=== PATIENT | male | born 1960 | race Hispanic/Latino ===

== ENCOUNTER 2021-12-25 18:13 | Inpatient (IN) | payer OTHER ==
[2021-12-25] MEDS ORDERED: Cefepime 2 GM VIAL ONE (19:12)
[2021-12-25 19:28] LABS: #Eosinphils 0.1 thou/uL (0.0-0.7); #Lymphocytes 0.4 thou/uL (1.20-3.40); #Monocytes 0.8 thou/uL (0.11-0.59); #Neutrophils 14.2 thou/uL (1.40-6.50); %Eosinophils 0.3 % (0.0-10.0); %Lymphocytes 2.3 % (21.0-51.0); %Monocytes 5.3 % (0.0-10.0); %Neutrophils 92.1 % (42.0-75.0); Hemoglobin 11.2 g/dL (14.0-18.0); Mean Corpuscular HGB CONC 31.3 g/dL (32.0-36.0); Mean Corpuscular Hemoglobin 25.6 pg (27.0-31.0); Mean Platelet Volume 8.1 fL (7.4-10.4); Platelet Count 155 thou/uL (130-400); RBC Distribution Width 16.4 % (11.5-14.5); Red Blood Cell (RBC) Count 4.35 mill/uL (4.70-6.10); White Blood Cell (WBC) Count 15.4 thou/uL (4.8-10.8)
[2021-12-25] MEDS ORDERED: Vancomycin 1 GM/200 ML BAG ONE (19:37)
[2021-12-25 19:53] LABS: ALT (SGPT) 14 U/L (8-55); AST (SGOT) 11 U/L (5-34); Albumin 2.5 g/dL (3.4-4.8); Alkaline Phosphatase 78 U/L (40-110); Anion Gap 11 mmol/L (10-20); BUN (Urea Nitrogen) 23 mg/dL (8.4-25.7); CK (CPK) 44 U/L (30-200); Calc. Creatinine Clearance 0 mL/min (70-130); Calcium 7.9 mg/dL (7.8-10.44); Carbon Dioxide 26 mmol/L (23-31); Chloride 99 mmol/L (98-107); Estimated GFR 61; Globulin 2.7 g/dL (2.4-3.5); Glucose 307 mg/dL (80-115); Lipase 17 U/L (8-78); Potassium 3.9 mmol/L (3.5-5.1); Protein, Total 5.2 g/dL (5.8-8.1); Sodium 132 mmol/L (136-145)
[2021-12-25 20:12] LABS: CKMB 1.5 ng/mL (0-6.6)
[2021-12-25] MEDS ORDERED: Nitroglycerin 0.4 MG TAB (25 Tab Bottle) SL PRN (20:34)
[2021-12-25] MEDS ORDERED: HumaLOG 300 UNITS/3 ML VIAL SC PRN (20:34)
[2021-12-25] MEDS ORDERED: Dextrose 5% in Water 1,000 ML IV PRN (20:34)
[2021-12-25] MEDS ORDERED: Dextrose 50% Abboject 50 ML SYRINGE SLOW IVP PRN (20:34)
[2021-12-25] MEDS ORDERED: Bisacodyl 5 MG TAB PO PRN (20:34)
[2021-12-25] MEDS ORDERED: Acetaminophen 325 MG TAB PO PRN (20:34)
[2021-12-25] MEDS ORDERED: Morphine 2 MG/ML VIAL SLOW IVP PRN (20:38)
[2021-12-25] MEDS ORDERED: Fluconazole 100 MG TAB PO SCH ×2 (20:45→20:46)
[2021-12-25] MEDS ORDERED: Furosemide 20 MG/2 ML VIAL SLOW IVP SCH (20:45)
[2021-12-25] MEDS ORDERED: Miconazole 2% Cream 30 GM TUBE TOP SCH (21:00)
[2021-12-25] MEDS ORDERED: HYDROcodone/Acetaminophen 10/325 mg Tablet PO PRN (22:55)
[2021-12-25] MEDS ORDERED: LORazepam 2 MG/ML SYRINGE IVP PRN (22:56)
[2021-12-25] MEDS ORDERED: levETIRAcetam 500 MG TAB PO SCH (23:00)
[2021-12-25] MEDS: cefTRIAXone\\ROCEPHIN 2 GM in Sodium Chloride 0.9% 100 ML IVPB SCH (23:08)
[2021-12-25 23:33] LABS: SARS-CoV-2 NAA Rapid Test Not Detected (NotDetected)
[2021-12-25] MEDS ORDERED: Vancomycin HCl 750 MG in Sodium Chloride 0.9% 250 ML 250 ML IVPB SCH (23:59)
[2021-12-26 00:36] LABS: Troponin I 0.054 ng/mL (< 0.028)
[2021-12-26 00:55] LABS: Bilirubin Negative (Negative); Blood, Urine Trace (Negative); Clarity Clear (Clear); Glucose, Urine (Dipstick) 100 mg/dL (Negative); Ketone, Urine Negative (Negative); Leukocyte 75 Leu/uL (Negative); Nitrite Negative (Negative); Protein, Urine (Dipstick) 20 mg/dL (Neg-Trace); RBC/HPF 0-3 HPF (0-3); Specific Gravity, Urine 1.008 (1.002-1.036); Squamous Epithelial 0-3 HPF (0-3); Urobilinogen Normal mg/dL (Less than 2); WBC/HPF 0-3 HPF (0-3); pH, Urine 6.5 (5.0-9.0)
[2021-12-26 01:02] LABS: Bacteria/HPF None Seen HPF (None Seen)
[2021-12-26 02:07] LABS: #Eosinphils 0.1 thou/uL (0.0-0.7); #Lymphocytes 0.5 thou/uL (1.20-3.40); #Monocytes 0.8 thou/uL (0.11-0.59); #Neutrophils 14.9 thou/uL (1.40-6.50); %Basophils 0.2 % (0.0-1.0); %Eosinophils 0.4 % (0.0-10.0); %Lymphocytes 2.9 % (21.0-51.0); %Monocytes 4.9 % (0.0-10.0); %Neutrophils 91.7 % (42.0-75.0); Hemoglobin 11.3 g/dL (14.0-18.0); Mean Corpuscular HGB CONC 31.1 g/dL (32.0-36.0); Mean Corpuscular Hemoglobin 25.5 pg (27.0-31.0); Mean Platelet Volume 8.1 fL (7.4-10.4); Platelet Count 155 thou/uL (130-400); RBC Distribution Width 16.3 % (11.5-14.5); Red Blood Cell (RBC) Count 4.42 mill/uL (4.70-6.10); White Blood Cell (WBC) Count 16.2 thou/uL (4.8-10.8)
[2021-12-26 02:32] LABS: Troponin I 0.092 ng/mL (< 0.028)
[2021-12-26 02:51] LABS: ALT (SGPT) 12 U/L (8-55); AST (SGOT) 13 U/L (5-34); Albumin 2.5 g/dL (3.4-4.8); Alkaline Phosphatase 74 U/L (40-110); Anion Gap 12 mmol/L (10-20); BUN (Urea Nitrogen) 20 mg/dL (8.4-25.7); Bilirubin, Total 0.7 mg/dL (0.2-1.2); Calc. Creatinine Clearance 87 mL/min (70-130); Calcium 7.7 mg/dL (7.8-10.44); Carbon Dioxide 22 mmol/L (23-31); Cardiac Risk 3.7 (Less than 4.5); Chloride 104 mmol/L (98-107); Cholesterol 137 mg/dl (< 200 Desired); Estimated GFR 78; Globulin 2.9 g/dL (2.4-3.5); Glucose 209 mg/dL (80-115); HDL Cholesterol 37 mg/dL (>60 Neg Risk); LDL Cholesterol, Calculated 79 mg/dL; Potassium 3.4 mmol/L (3.5-5.1); Protein, Total 5.4 g/dL (5.8-8.1); Sodium 135 mmol/L (136-145); Triglycerides 107 mg/dL (Less than 150)
[2021-12-26] MEDS: levETIRAcetam 500 MG TAB PO SCH ×2 (08:59→20:50)
[2021-12-26] MEDS: Atorvastatin Calcium 40 MG TAB PO SCH (09:00)
[2021-12-26] MEDS: Aspirin Chewable 81 MG TAB PO SCH (09:00)
[2021-12-26] MEDS: Apixaban 2.5 MG TAB PO SCH ×2 (09:01→20:50)
[2021-12-26] MEDS: Furosemide 40 MG TAB PO SCH ×2 (09:01→15:29)
[2021-12-26] MEDS: Clotrimazole 1 % Cream 30 GM TUBE TOP SCH ×2 (09:02→20:54)
[2021-12-26] MEDS: VANCOMYCIN 1.25 GM/250 ML BAG 1.25 GM in Premix Bag 1 BAG IVPB SCH (12:40)
[2021-12-26] MEDS: cefTRIAXone\\ROCEPHIN 2 GM in Sodium Chloride 0.9% 100 ML IVPB SCH (20:51)
[2021-12-27] MEDS: VANCOMYCIN 1.25 GM/250 ML BAG 1.25 GM in Premix Bag 1 BAG IVPB SCH ×3 (00:38→23:19)
[2021-12-27 09:13] LABS: #Eosinphils 0.1 thou/uL (0.0-0.7); #Lymphocytes 0.4 thou/uL (1.20-3.40); #Monocytes 0.7 thou/uL (0.11-0.59); #Neutrophils 11.3 thou/uL (1.40-6.50); %Eosinophils 1.1 % (0.0-10.0); %Lymphocytes 3.2 % (21.0-51.0); %Monocytes 5.8 % (0.0-10.0); %Neutrophils 89.9 % (42.0-75.0); Mean Corpuscular HGB CONC 32.6 g/dL (32.0-36.0); Mean Corpuscular Volume 82.8 fL (78.0-98.0); Mean Platelet Volume 7.8 fL (7.4-10.4); Platelet Count 151 thou/uL (130-400); Red Blood Cell (RBC) Count 3.69 mill/uL (4.70-6.10); White Blood Cell (WBC) Count 12.6 thou/uL (4.8-10.8)
[2021-12-27] MEDS: Aspirin Chewable 81 MG TAB PO SCH (09:14)
[2021-12-27] MEDS: levETIRAcetam 500 MG TAB PO SCH ×2 (09:14→21:30)
[2021-12-27] MEDS: Atorvastatin Calcium 40 MG TAB PO SCH (09:15)
[2021-12-27] MEDS: Apixaban 2.5 MG TAB PO SCH ×2 (09:15→21:30)
[2021-12-27] MEDS: Furosemide 40 MG TAB PO SCH ×2 (09:15→13:00)
[2021-12-27] MEDS: Clotrimazole 1 % Cream 30 GM TUBE TOP SCH ×2 (09:16→21:31)
[2021-12-27 09:32] LABS: Anion Gap 14 mmol/L (10-20); BUN (Urea Nitrogen) 19 mg/dL (8.4-25.7); Calc. Creatinine Clearance 79 mL/min (70-130); Calcium 7.7 mg/dL (7.8-10.44); Carbon Dioxide 23 mmol/L (23-31); Chloride 101 mmol/L (98-107); Estimated GFR 69; Glucose 332 mg/dL (80-115); Potassium 3.4 mmol/L (3.5-5.1); Sodium 135 mmol/L (136-145)
[2021-12-27 11:30] LABS: Vancomycin, Trough 15.1 ug/mL
[2021-12-27] MEDS: HumaLOG 300 UNITS/3 ML VIAL SC PRN ×2 (12:59→17:36)
[2021-12-27] MEDS: Ondansetron PF 4 MG/2 ML Vial IVP PRN ×2 (13:00→22:05)
[2021-12-27] MEDS: cefTRIAXone\\ROCEPHIN 2 GM in Sodium Chloride 0.9% 100 ML IVPB SCH (21:30)
[2021-12-28] MEDS: Ondansetron PF 4 MG/2 ML Vial IVP PRN (03:53)
[2021-12-28 05:03] LABS: #Eosinphils 0.1 thou/uL (0.0-0.7); #Lymphocytes 0.4 thou/uL (1.20-3.40); #Monocytes 0.8 thou/uL (0.11-0.59); #Neutrophils 11.9 thou/uL (1.40-6.50); %Basophils 0.1 % (0.0-1.0); %Eosinophils 0.7 % (0.0-10.0); %Lymphocytes 2.7 % (21.0-51.0); %Monocytes 5.9 % (0.0-10.0); %Neutrophils 90.7 % (42.0-75.0); Mean Corpuscular HGB CONC 31.7 g/dL (32.0-36.0); Mean Corpuscular Hemoglobin 25.8 pg (27.0-31.0); Mean Corpuscular Volume 81.5 fL (78.0-98.0); Mean Platelet Volume 8.3 fL (7.4-10.4); Platelet Count 155 thou/uL (130-400); RBC Distribution Width 15.8 % (11.5-14.5); Red Blood Cell (RBC) Count 3.86 mill/uL (4.70-6.10); White Blood Cell (WBC) Count 13.2 thou/uL (4.8-10.8)
[2021-12-28 05:20] LABS: ALT (SGPT) 15 U/L (8-55); AST (SGOT) 16 U/L (5-34); Albumin 2.3 g/dL (3.4-4.8); Alkaline Phosphatase 84 U/L (40-110); Anion Gap 14 mmol/L (10-20); BUN (Urea Nitrogen) 20 mg/dL (8.4-25.7); Bilirubin, Total 0.4 mg/dL (0.2-1.2); Calc. Creatinine Clearance 71 mL/min (70-130); Calcium 7.7 mg/dL (7.8-10.44); Carbon Dioxide 24 mmol/L (23-31); Chloride 100 mmol/L (98-107); Estimated GFR 62; Glucose 321 mg/dL (80-115); Magnesium 1.8 mg/dL (1.6-2.6); Phosphorus 2.5 mg/dL (2.3-4.7); Potassium 3.1 mmol/L (3.5-5.1); Protein, Total 5.3 g/dL (5.8-8.1); Sodium 135 mmol/L (136-145)
[2021-12-28] MEDS: HumaLOG 300 UNITS/3 ML VIAL SC PRN ×2 (06:08→16:39)
[2021-12-28] MEDS ORDERED: Potassium Chloride 40 MEQ in Premix Bag 1 BAG IVPB SCH (08:30)
[2021-12-28] MEDS ORDERED: Fluconazole 100 MG TAB PO SCH (08:45)
[2021-12-28] MEDS: levETIRAcetam 500 MG TAB PO SCH ×2 (09:18→21:26)
[2021-12-28] MEDS: Aspirin Chewable 81 MG TAB PO SCH (09:19)
[2021-12-28] MEDS: Apixaban 2.5 MG TAB PO SCH ×2 (09:19→21:27)
[2021-12-28] MEDS: Atorvastatin Calcium 40 MG TAB PO SCH (09:19)
[2021-12-28] MEDS: Furosemide 40 MG TAB PO SCH ×2 (09:20→14:14)
[2021-12-28] MEDS: Insulin Glargine 30 UNITS/0.3 ML VIAL SC SCH (09:26)
[2021-12-28] MEDS: Clotrimazole 1 % Cream 30 GM TUBE TOP SCH ×2 (09:27→21:27)
[2021-12-28] MEDS: Potassium Chloride 20 MEQ in Premix Bag 1 BAG IVPB SCH ×2 (09:27→11:39)
[2021-12-28] MEDS: HumaLOG 300 UNITS/3 ML VIAL SC SCH ×2 (11:40→16:39)
[2021-12-28] MEDS: VANCOMYCIN 1.25 GM/250 ML BAG 1.25 GM in Premix Bag 1 BAG IVPB SCH ×2 (11:40→23:28)
[2021-12-28] MEDS: Dronabinol 2.5 MG CAP PO SCH ×2 (16:34→21:27)
[2021-12-28] MEDS: cefTRIAXone\\ROCEPHIN 2 GM in Sodium Chloride 0.9% 100 ML IVPB SCH (21:26)
[2021-12-28 23:19] LABS: Vancomycin, Trough 24.3 ug/mL
[2021-12-29] MEDS: Sodium Chloride 0.9% 1,000 ML IV SCH ×2 (02:38→14:50)
[2021-12-29] MEDS: Ondansetron PF 4 MG/2 ML Vial IVP PRN ×3 (02:38→17:09)
[2021-12-29 04:59] LABS: #Eosinphils 0.1 thou/uL (0.0-0.7); #Lymphocytes 0.4 thou/uL (1.20-3.40); #Monocytes 0.6 thou/uL (0.11-0.59); #Neutrophils 10.9 thou/uL (1.40-6.50); %Eosinophils 1.2 % (0.0-10.0); %Lymphocytes 3.5 % (21.0-51.0); %Monocytes 5.2 % (0.0-10.0); %Neutrophils 90.2 % (42.0-75.0); Hemoglobin 10.3 g/dL (14.0-18.0); Mean Corpuscular HGB CONC 31.5 g/dL (32.0-36.0); Mean Corpuscular Hemoglobin 25.8 pg (27.0-31.0); Mean Platelet Volume 7.9 fL (7.4-10.4); Platelet Count 181 thou/uL (130-400); RBC Distribution Width 15.9 % (11.5-14.5); White Blood Cell (WBC) Count 12.1 thou/uL (4.8-10.8)
[2021-12-29 05:24] LABS: ALT (SGPT) 17 U/L (8-55); AST (SGOT) 15 U/L (5-34); Albumin 2.3 g/dL (3.4-4.8); Alkaline Phosphatase 80 U/L (40-110); Anion Gap 13 mmol/L (10-20); BUN (Urea Nitrogen) 17 mg/dL (8.4-25.7); Bilirubin, Total 0.5 mg/dL (0.2-1.2); Calc. Creatinine Clearance 77 mL/min (70-130); Calcium 7.8 mg/dL (7.8-10.44); Carbon Dioxide 26 mmol/L (23-31); Chloride 102 mmol/L (98-107); Estimated GFR 68; Globulin 2.9 g/dL (2.4-3.5); Glucose 223 mg/dL (80-115); Magnesium 1.7 mg/dL (1.6-2.6); Potassium 3.4 mmol/L (3.5-5.1); Protein, Total 5.2 g/dL (5.8-8.1); Sodium 138 mmol/L (136-145)
[2021-12-29] MEDS ORDERED: Magnesium 2 GM/50 ML(in water) 2 GM in Premix Bag 1 BAG IVPB SCH (05:45)
[2021-12-29] MEDS ORDERED: Potassium Chloride 20 MEQ TAB PO SCH (06:00)
[2021-12-29] MEDS: HumaLOG 300 UNITS/3 ML VIAL SC PRN ×4 (06:34→17:10)
[2021-12-29] MEDS: Furosemide 40 MG TAB PO SCH ×2 (08:54→15:03)
[2021-12-29] MEDS: Apixaban 2.5 MG TAB PO SCH ×2 (08:54→21:39)
[2021-12-29] MEDS: Dronabinol 2.5 MG CAP PO SCH ×3 (08:54→21:40)
[2021-12-29] MEDS: levETIRAcetam 500 MG TAB PO SCH ×2 (08:55→21:39)
[2021-12-29] MEDS: Atorvastatin Calcium 40 MG TAB PO SCH (08:55)
[2021-12-29] MEDS: Polyethylene Glycol 3350 17 GM Packet PO SCH (08:56)
[2021-12-29] MEDS: HumaLOG 300 UNITS/3 ML VIAL SC SCH ×3 (08:56→17:09)
[2021-12-29] MEDS: Insulin Glargine 30 UNITS/0.3 ML VIAL SC SCH (08:58)
[2021-12-29] MEDS: Clotrimazole 1 % Cream 30 GM TUBE TOP SCH ×2 (08:59→21:40)
[2021-12-29] MEDS: Aspirin Chewable 81 MG TAB PO SCH (09:00)
[2021-12-29] MEDS ORDERED: FLU VACC QS2022-23(6MOS UP)/PF 60 MCG/0.5 ML SYRINGE IM ONE (09:00)
[2021-12-29] MEDS ORDERED: Prevnar 13-Val Conj/PF 0.5 ML SYRINGE IM ONE (09:00)
[2021-12-29] MEDS ORDERED: VANCOMYCIN 1.25 GM/250 ML BAG 1.25 GM in Premix Bag 1 BAG IVPB SCH (11:00)
[2021-12-29 11:40] LABS: Vancomycin, Random 14.9 ug/mL (See Comment)
[2021-12-29] MEDS: Vancomycin HCl 750 MG in Sodium Chloride 0.9% 250 ML 250 ML IVPB SCH (14:49)
[2021-12-29] MEDS: cefTRIAXone\\ROCEPHIN 2 GM in Sodium Chloride 0.9% 100 ML IVPB SCH (21:38)
[2021-12-30] MEDS: Vancomycin HCl 750 MG in Sodium Chloride 0.9% 250 ML 250 ML IVPB SCH ×2 (00:51→13:08)
[2021-12-30 04:36] LABS: #Eosinphils 0.3 thou/uL (0.0-0.7); #Lymphocytes 0.5 thou/uL (1.20-3.40); #Monocytes 0.6 thou/uL (0.11-0.59); %Eosinophils 2.3 % (0.0-10.0); %Lymphocytes 4.4 % (21.0-51.0); %Monocytes 5.5 % (0.0-10.0); %Neutrophils 87.7 % (42.0-75.0); Mean Corpuscular HGB CONC 31.6 g/dL (32.0-36.0); Mean Corpuscular Volume 82.4 fL (78.0-98.0); Mean Platelet Volume 7.6 fL (7.4-10.4); Platelet Count 212 thou/uL (130-400); RBC Distribution Width 15.6 % (11.5-14.5); Red Blood Cell (RBC) Count 3.86 mill/uL (4.70-6.10); White Blood Cell (WBC) Count 11.4 thou/uL (4.8-10.8)
[2021-12-30 04:54] LABS: Anion Gap 9 mmol/L (10-20); BUN (Urea Nitrogen) 14 mg/dL (8.4-25.7); Calc. Creatinine Clearance 83 mL/min (70-130); Calcium 7.4 mg/dL (7.8-10.44); Carbon Dioxide 28 mmol/L (23-31); Chloride 104 mmol/L (98-107); Estimated GFR 76; Glucose 163 mg/dL (80-115); Potassium 3.4 mmol/L (3.5-5.1); Sodium 138 mmol/L (136-145)
[2021-12-30] MEDS: Sodium Chloride 0.9% 1,000 ML IV SCH ×2 (05:00→15:11)
[2021-12-30] MEDS: HumaLOG 300 UNITS/3 ML VIAL SC PRN (06:09)
[2021-12-30] MEDS ORDERED: Potassium Chloride 20 MEQ TAB PO SCH (08:00)
[2021-12-30] MEDS: levETIRAcetam 500 MG TAB PO SCH ×2 (09:32→21:16)
[2021-12-30] MEDS: Insulin Glargine 30 UNITS/0.3 ML VIAL SC SCH (09:33)
[2021-12-30] MEDS: Furosemide 40 MG TAB PO SCH ×2 (09:33→13:08)
[2021-12-30] MEDS: Apixaban 2.5 MG TAB PO SCH ×2 (09:33→21:17)
[2021-12-30] MEDS: Atorvastatin Calcium 40 MG TAB PO SCH (09:33)
[2021-12-30] MEDS: Aspirin Chewable 81 MG TAB PO SCH (09:33)
[2021-12-30] MEDS: Polyethylene Glycol 3350 17 GM Packet PO SCH (09:34)
[2021-12-30] MEDS: Dronabinol 2.5 MG CAP PO SCH ×3 (09:34→21:16)
[2021-12-30] MEDS: Clotrimazole 1 % Cream 30 GM TUBE TOP SCH ×2 (09:35→21:45)
[2021-12-30] MEDS: HumaLOG 300 UNITS/3 ML VIAL SC SCH ×3 (09:40→17:20)
[2021-12-30 15:25] VITALS: BMI 25.9
[2021-12-30] MEDS: cefTRIAXone\\ROCEPHIN 2 GM in Sodium Chloride 0.9% 100 ML IVPB SCH (21:45)
[2021-12-31 00:35] LABS: Vancomycin, Trough 17.5 ug/mL
[2021-12-31] MEDS: Vancomycin HCl 750 MG in Sodium Chloride 0.9% 250 ML 250 ML IVPB SCH ×2 (01:18→14:35)
[2021-12-31 04:32] LABS: #Eosinphils 0.3 thou/uL (0.0-0.7); #Lymphocytes 0.5 thou/uL (1.20-3.40); #Monocytes 0.6 thou/uL (0.11-0.59); #Neutrophils 7.8 thou/uL (1.40-6.50); %Basophils 0.2 % (0.0-1.0); %Eosinophils 2.8 % (0.0-10.0); %Lymphocytes 5.9 % (21.0-51.0); %Neutrophils 85.2 % (42.0-75.0); Hemoglobin 9.5 g/dL (14.0-18.0); Mean Corpuscular HGB CONC 31.1 g/dL (32.0-36.0); Mean Corpuscular Hemoglobin 25.7 pg (27.0-31.0); Mean Corpuscular Volume 82.6 fL (78.0-98.0); Mean Platelet Volume 7.8 fL (7.4-10.4); Platelet Count 252 thou/uL (130-400); RBC Distribution Width 15.4 % (11.5-14.5); White Blood Cell (WBC) Count 9.2 thou/uL (4.8-10.8)
[2021-12-31 05:03] LABS: Anion Gap 11 mmol/L (10-20); BUN (Urea Nitrogen) 15 mg/dL (8.4-25.7); Calc. Creatinine Clearance 86 mL/min (70-130); Calcium 7.3 mg/dL (7.8-10.44); Carbon Dioxide 26 mmol/L (23-31); Chloride 103 mmol/L (98-107); Estimated GFR 79; Glucose 218 mg/dL (80-115); Potassium 3.5 mmol/L (3.5-5.1); Sodium 136 mmol/L (136-145)
[2021-12-31] MEDS: Sodium Chloride 0.9% 1,000 ML IV SCH ×2 (06:04→11:10)
[2021-12-31] MEDS ORDERED: Potassium Chloride 20 MEQ TAB PO SCH (08:00)
[2021-12-31] MEDS: HumaLOG 300 UNITS/3 ML VIAL SC SCH ×2 (08:34→11:30)
[2021-12-31] MEDS: Furosemide 40 MG TAB PO SCH ×2 (09:28→14:35)
[2021-12-31] MEDS: Apixaban 2.5 MG TAB PO SCH (09:28)
[2021-12-31] MEDS: levETIRAcetam 500 MG TAB PO SCH (09:28)
[2021-12-31] MEDS: Atorvastatin Calcium 40 MG TAB PO SCH (09:28)
[2021-12-31] MEDS: Aspirin Chewable 81 MG TAB PO SCH (09:28)
[2021-12-31] MEDS: Dronabinol 2.5 MG CAP PO SCH ×2 (09:28→16:01)
[2021-12-31] MEDS: Insulin Glargine 30 UNITS/0.3 ML VIAL SC SCH (09:29)
[2021-12-31] MEDS: Polyethylene Glycol 3350 17 GM Packet PO SCH (09:29)
[2021-12-31] MEDS: Clotrimazole 1 % Cream 30 GM TUBE TOP SCH (10:19)
[2021-12-31] MEDS: HumaLOG 300 UNITS/3 ML VIAL SC PRN (11:30)
[2021-12-31 14:31] VITALS: BP 113/59; TEMP 98.1
== END 2021-12-31 17:00 | disposition home or self-care (01) | DRG 181 ==
LOC: ERS 18:13 → 2NO 20:28
PROVIDERS: ADMIT Internal Medicine; ATTEND Hospitalist
DX: C34.90 Malignant neoplasm of unspecified part of unspecified bronchus or lung (principal); C79.31 Secondary malignant neoplasm of brain; I48.20 Chronic atrial fibrillation, unspecified; J90 Pleural effusion, not elsewhere classified; N48.1 Balanitis; I10 Essential (primary) hypertension; E11.51 Type 2 diabetes mellitus with diabetic peripheral angiopathy without gangrene; E11.65 Type 2 diabetes mellitus with hyperglycemia; I25.10 Atherosclerotic heart disease of native coronary artery without angina pectoris; Z20.822 Contact with and (suspected) exposure to COVID-19; Z79.01 Long term (current) use of anticoagulants; Z98.890 Other specified postprocedural states; Z89.422 Acquired absence of other left toe(s)
CPT/HCPCS: 36415; 36416; 70450; 71045; 72125; 80048; 80053; 80061; 80202; 81001; 82550; 82553; 83605; 83690; 83735; 83880; 84100; 84484; 85025; 87040; 93005; 94760; 96374; 96375; 97139; J0692; J0696; J1815; J1940; J2405; J3370; J3475; J3480; J3490; J7050; Q0167